=== PATIENT | male | born 1955 | race Caucasian/White ===

== ENCOUNTER → 2017-06-24 | Outpatient (CLI) | payer OTHER ==
[~2017-06-24] MED LIST: APIX5TAB PO; LISI5TAB7 PO; METO25TA35 PO
== END | disposition home or self-care (01) ==
LOC: CVU 08:50
PROVIDERS: ATTEND Internal Medicine Cardiovascular Disease
DX: I08.1 Rheumatic disorders of both mitral and tricuspid valves (principal); I77.819 Aortic ectasia, unspecified site; I10 Essential (primary) hypertension
CPT/HCPCS: 93306

== ENCOUNTER 2017-10-06 09:56 | Day surgery (SDC) | payer OTHER ==
[2017-10-03 08:52] VITALS: BP 148/92
[2017-10-03 09:40] LABS: BLOOD UREA NITROGEN 19 mg/dL (7-18)
[~2017-10-06] VITALS: Ht 177.8 cm; Wt 121.8 kg
[~2017-10-06 09:56] MED LIST changes: +HYDR12.58 PO; +LISI-167 PO; +METO-99 PO; +MULT-658 PO; +RIVA20TA PO
[2017-10-06] MEDS ORDERED: DEXTROSE 5% 500 ML IV PRN (10:10)
[2017-10-06] MEDS ORDERED: PROPOFOL 10 MG/ML, 20ML ONE (11:46)
[2017-10-06] MEDS ORDERED: METOPROLOL TARTRATE 100 MG TABLET PO SCH (21:00)
[2017-10-07] MEDS ORDERED: MULTIVITAMIN 1 TABLET PO SCH (09:00)
[2017-10-07] MEDS ORDERED: HYDROCHLOROTHIAZIDE 12.5 MG CAPSULE PO SCH (09:00)
[2017-10-07] MEDS ORDERED: RIVAROXABAN 20 MG TABLET PO SCH (09:00)
[2017-10-07] MEDS ORDERED: LISINOPRIL 10 MG TABLET PO SCH (09:00)
== END 2017-10-06 15:25 ==
LOC: CACL 09:56 → EDSTATUS 12:00 → CACL 15:25
PROVIDERS: ATTEND Internal Medicine Cardiovascular Disease
DX: I48.92 Unspecified atrial flutter (principal); I42.9 Cardiomyopathy, unspecified; I50.21 Acute systolic (congestive) heart failure; I10 Essential (primary) hypertension; Z88.0 Allergy status to penicillin; Z88.8 Allergy status to other drugs, medicaments and biological substances
CPT/HCPCS: 36415; 80048; 85610; 92960; 93005; J2704

== ENCOUNTER → 2018-05-11 | Outpatient (CLI) | payer OTHER | END | disposition home or self-care (01) | LOC: CVU 08:49 | PROVIDERS: ATTEND Internal Medicine Cardiovascular Disease | DX: I08.1 Rheumatic disorders of both mitral and tricuspid valves (principal); I10 Essential (primary) hypertension; I42.9 Cardiomyopathy, unspecified | CPT/HCPCS: 93306 ==

== ENCOUNTER → 2019-05-10 | Outpatient (CLI) | payer OTHER ==
[~2019-05-10] MED LIST changes: -HYDR12.58 PO; +HYDROCHLOROTH12.5 MG PO
== END | disposition home or self-care (01) ==
LOC: CVU 09:45
PROVIDERS: ATTEND Internal Medicine Cardiovascular Disease
DX: I34.0 Nonrheumatic mitral (valve) insufficiency (principal); I11.0 Hypertensive heart disease with heart failure; I50.9 Heart failure, unspecified
CPT/HCPCS: 93306

== ENCOUNTER 2020-01-21 06:31 | Emergency (ER) | payer OTHER ==
[~2020-01-21] VITALS: Ht 180.3 cm; Wt 128.2 kg
[2020-01-21 06:34] VITALS: BP 157/92
[2020-01-21] MEDS ORDERED: hydrOXyzine 50MG TABLET PO ONE (07:00)
[2020-01-21] MEDS ORDERED: FAMOTIDINE 20 MG TABLET PO ONE (07:00)
[2020-01-21] MEDS ORDERED: FAMOTIDINE 20 MG TABLET ONE (07:26)
[2020-01-21] MEDS ORDERED: hydrOXyzine 50MG TABLET ONE (07:26)
--- NOTE | 2020-01-21 08:21 | NUR ---
Patient/Caregiver given discharge instructions and they have confirmed that they understand the instructions. Patient ambulatory with steady gait. [pt left with ALL PERSONAL BELONGINGS.
== END 2020-01-21 08:23 | disposition home or self-care (01) ==
LOC: ED 07:25
DX: L50.9 Urticaria, unspecified (principal); I48.92 Unspecified atrial flutter
CPT/HCPCS: 99284; J7512

== ENCOUNTER → 2021-03-30 | Outpatient (CLI) | payer OTHER | END | disposition home or self-care (01) | LOC: CVU 06:56 | PROVIDERS: ATTEND Internal Medicine Cardiovascular Disease | DX: I08.3 Combined rheumatic disorders of mitral, aortic and tricuspid valves (principal); I42.9 Cardiomyopathy, unspecified; I11.9 Hypertensive heart disease without heart failure | CPT/HCPCS: 93306 ==

== ENCOUNTER 2021-07-16 07:58 | Outpatient (CLI) | payer OTHER | END 2021-07-16 23:59 | disposition home or self-care (01) | LOC: CVU 07:58 | PROVIDERS: ATTEND Registered Nurse | DX: I08.0 Rheumatic disorders of both mitral and aortic valves (principal); I11.0 Hypertensive heart disease with heart failure; I50.9 Heart failure, unspecified; I42.9 Cardiomyopathy, unspecified; Z87.891 Personal history of nicotine dependence | CPT/HCPCS: 93306 ==